=== PATIENT | male | born 1955 | race Caucasian/White ===

== ENCOUNTER 2024-02-09 11:33 | Observation (INO) ==
[2024-02-09 12:13] LABS: Basophils # (Auto) 0.03 K/mcL (0.00-0.30); Basophils % (Auto) 0.4 % (0.0-2.0); Eosinophils # (Auto) 0.08 K/mcL (0.00-0.70); Eosinophils % (Auto) 1.2 % (0.0-7.0); Hematocrit 48.3 % (40.1-51.0); Hemoglobin 15.8 g/dL (13.7-17.5); Lymphocytes # (Auto) 1.42 K/mcL (1.50-4.80); Lymphocytes % (Auto) 20.6 % (15.5-49.0); Mean Cell Volume 96.8 fL (80.0-100.0); Mean Corpuscular HGB Conc 32.7 g/dL (31.0-36.0); Mean Platelet Volume 12.4 fL (8.8-12.5); Monocytes # (Auto) 0.59 K/mcL (0.10-0.90); Monocytes % (Auto) 8.6 % (1.0-12.0); Neutrophils % (Auto) 68.8 % (38.0-78.0); Platelet Count 207 K/mcL (140-440); RBC 4.99 M/mcL (4.63-6.08); WBC 6.9 K/mcL (4.5-11.0)
[2024-02-09 12:33] LABS: ALT/SGPT 29 U/L (<40); AST/SGOT 28 U/L (<40); Albumin 4.6 gm/dL (3.2-5.2); Albumin/Globulin Ratio 2.2 (1.0-2.3); Alkaline Phosphatase 74 U/L (39-117); Bilirubin,Total 0.6 mg/dL (0.1-1.0); Blood Urea Nitrogen 13 mg/dL (8-23); Calcium 9.9 mg/dL (8.6-10.4); Carbon Dioxide 29 mmol/L (22-30); Chloride 102 mmol/L (96-108); Globulin 2.1 gm/dL (2.2-3.7); Glomerular Filtration Rate 91; Glucose 75 mg/dL (70-105); Potassium 4.9 mmol/L (3.3-5.1); Sodium 140 mmol/L (133-145)
[2024-02-09 12:37] LABS: INR 0.9 (0.9-1.1); Partial Thromboplastin Time 27.9 sec (20.0-37.0); Prothrombin Time 12.3 sec (11.9-14.5)
[2024-02-09] MEDS: ASPIRIN 81 MG TAB.CHEW CHEWED ONE (15:13)
[2024-02-09] MEDS: CLOPIDOGREL 75 MG TABLET PO ONE (15:13)
[2024-02-09] MEDS ORDERED: METOCLOPRAMIDE 10 MG/2 ML VIAL IV PRN (16:39)
[2024-02-09] MEDS ORDERED: ACETAMINOPHEN 160 MG/5 ML ORAL.SOL PO PRN (16:39)
[2024-02-09] MEDS ORDERED: MAGNESIUM SULFATE 2 GM/50 ML BAG IV PRN (16:39)
[2024-02-09] MEDS ORDERED: SENNOSIDES 1 TABLET PO PRN (16:39)
[2024-02-09] MEDS ORDERED: POTASSIUM CHLORIDE 40 MEQ in DEXTROSE 5% IN WATER 500 ML IV PRN (16:39)
[2024-02-09] MEDS ORDERED: POLYETHYLENE GLYCOL 3350 17 GM PACKET PO PRN (16:39)
[2024-02-09] MEDS ORDERED: POTASSIUM CHLORIDE 20 MEQ TABLET PO PRN ×2 (16:39)
[2024-02-09] MEDS ORDERED: IPRATROPIUM/ALBUTEROL 3 ML AMPUL.NEB NEB PRN (16:39)
[2024-02-09] MEDS ORDERED: ONDANSETRON 4 MG/2 ML VIAL IV PRN (16:39)
[2024-02-09] MEDS: 0.9 % SODIUM CHLORIDE 1,000 ML IV ONE (16:50)
[2024-02-09 18:43] LABS: HDL Cholesterol 58 mg/dL (>40); LDL Cholesterol,Calculated 77 mg/dL (<100); Non-HDL Cholesterol 91 mg/dL (<130); Triglycerides 74 mg/dL (<150)
[2024-02-09] MEDS: DOCUSATE SODIUM 100 MG CAPSULE PO SCH (20:05)
[2024-02-09] MEDS: ATORVASTATIN 40 MG TABLET PO SCH (20:05)
[2024-02-10] MEDS: 0.9 % SODIUM CHLORIDE 10 ML SYRINGE IV SCH (04:29)
[2024-02-10 07:03] LABS: ALT/SGPT 22 U/L (<40); AST/SGOT 23 U/L (<40); Albumin 3.9 gm/dL (3.2-5.2); Albumin/Globulin Ratio 1.9 (1.0-2.3); Alkaline Phosphatase 61 U/L (39-117); Bilirubin,Direct < 0.2 mg/dL (0-0.3); Bilirubin,Total 0.4 mg/dL (0.1-1.0); Blood Urea Nitrogen 14 mg/dL (8-23); Calcium 9.1 mg/dL (8.6-10.4); Carbon Dioxide 24 mmol/L (22-30); Chloride 105 mmol/L (96-108); Globulin 2.1 gm/dL (2.2-3.7); Glomerular Filtration Rate 91; Glucose 106 mg/dL (70-105); Lactate Dehydrogenase 131 U/L (135-225); Phosphorous 3.7 mg/dL (2.5-4.5); Potassium 4.2 mmol/L (3.3-5.1); Sodium 140 mmol/L (133-145); Triglycerides 84 mg/dL (<150); Uric Acid 5.1 mg/dL (2.5-8.0)
[2024-02-10] MEDS: ENOXAPARIN 40 MG/0.4 ML SYRINGE SQ SCH (09:07)
[2024-02-10] MEDS: CLOPIDOGREL 75 MG TABLET PO SCH (09:07)
[2024-02-10] MEDS: ASPIRIN 81 MG TAB.CHEW PO SCH (09:07)
== END 2024-02-10 12:48 | disposition home or self-care (01) ==
LOC: ED 11:33 → ICU 11:33
PROVIDERS: ADMIT Internal Medicine; ATTEND Internal Medicine